=== PATIENT | male | born 1945 | race Caucasian/White ===

== ENCOUNTER 2018-05-19 08:47 | Inpatient (IN) | payer MEDICARE, OTHER ==
--- NOTE | 2018-05-19 09:12 | ED ---
General Adult HPI - General Chief complaint: Shortness of Breath Stated complaint: Sob/chest pain Source: patient, family Mode of arrival: wheelchair Limitations: no limitations - History of Present Illness Initial comments: Dictation was produced using [employer] dictation software. please excuse any grammatical, word or spelling errors. Chief Complaint: 72-year-old male past medical history of COPD on home oxygen presents with dyspnea since yesterday. History of Present Illness: Patient is 72-year-old male. He states that he's been dyspneic since yesterday. Patient was at a [employer] green party. He states that his shortness of breath has acutely worsened. Patient has any worsening symptoms with lying flat. Patient reports however no pitting edema to bilateral lower extremities. Patient did eat a lot of salty foods last night and a spaghetti. Patient hasn't been completes at this time. Disturbed heart attack several years ago. The ROS documented in this emergency department record has been reviewed and confirmed by me. Those systems with pertinent positive or negative responses have been documented in the HPI. All other systems are other negative and/or noncontributory. - Related Data Home Medications Medication Instructions Recorded Confirmed Losartan [Cozaar] 50 mg PO DAILY 04/13/14 05/19/18 Methocarbamol [Robaxin] 750 mg PO QID 04/13/14 05/19/18 Pravastatin Sodium [Pravachol] 20 mg PO DAILY 04/13/14 05/19/18 guaiFENesin [Mucinex] 600 mg PO BID 04/13/14 05/19/18 metFORMIN HCL [Glucophage] 1,000 mg PO BID 04/13/14 05/19/18 sitaGLIPtin PHOSPHATE [Januvia] 100 mg PO DAILY 04/13/14 05/19/18 traMADol HCl [Ultram] 100 mg PO BID PRN 04/13/14 05/19/18 Albuterol Nebulized [Ventolin 2.5 mg INHALATION RT-QID PRN 05/19/18 05/19/18 Nebulized] Dapagliflozin Propanediol [Farxiga] 5 mg PO DAILY 05/19/18 05/19/18 Fexofenadine HCl [Sepideh Allergy] 60 mg PO BID 05/19/18 05/19/18 Fluticasone/Umeclidin/Vilanter 1 puff INHALATION RT-DAILY 05/19/18 05/19/18 [Trelegy Ellipta 100-62.5-25] Gabapentin [Neurontin] 300 mg PO HS 05/19/18 05/19/18 HYDROcodone/APAP 5-325MG [[place] 1 tab PO DAILY PRN 05/19/18 05/19/18 5-325] Ipratropium/Albuterol Sulfate 2 puff INHALATION RT-Q6H PRN 05/19/18 05/19/18 [Combivent Respimat Inhaler] Allergies Allergy/AdvReac Type Severity Reaction Status Date / Time sildenafil [From Viagra] Allergy Anaphylaxis Verified 05/19/18 09:34 Review of Systems ROS Statement: Those systems with pertinent positive or pertinent negative responses have been documented in the HPI. ROS Other: All systems not noted in ROS Statement are negative. Past Medical History Past Medical History: COPD, Diabetes Mellitus, Sleep Apnea/CPAP/BIPAP History of Any Multi-Drug Resistant Organisms: None Reported Past Surgical History: No Surgical Hx Reported Past Psychological History: No Psychological Hx Reported Smoking Status: Former smoker Past Alcohol Use History: Rare Past Drug Use History: None Reported General Exam - General Exam Comments Initial Comments: PHYSICAL EXAM: General Impression: Alert and oriented x3, dyspneic HEENT: Normocephalic atraumatic, extra-ocular movements intact, pupils equal and reactive to light bilaterally, mucous membranes moist. Cardiovascular: Heart regular rate and rhythm, S1&S2 audible, no murmurs, rubs or gallops Chest: Bilateral lung crackles Abdomen: Bowel sounds present, abdomen soft, non-tender, non-distended, no organomegaly Musculoskeletal: Pulses present and equal in all extremities, 2+ pitting edema of bilateral pretibial areas Motor: Power 5/5 bilaterally, no focal deficits noted Neurological: CN II-XII grossly intact, no focal motor or sensory deficits noted Skin: Intact with no visualized rashes Psych: Normal affect and mood Limitations: no limitations Course Vital Signs 05/19/18 05/19/18 05/19/18 08:50 09:19 09:30 Temperature 98 F Pulse Rate 102 H 116 H Respiratory 26 H 26 H 32 H Rate Blood Pressure 117/66 121/91 O2 Sat by Pulse 86 L 91 L Oximetry 05/19/18 10:00 Temperature Pulse Rate 107 H Respiratory 25 H Rate Blood Pressure 129/75 O2 Sat by Pulse 97 Oximetry Medical Decision Making - Medical Decision Making ED course: 72-year-old male past medical history of COPD, oxygen dependent presents with new-onset dyspnea. All signs upon arrival shows oxygen saturation of 86, respiratory rate 26, heart rate of 102. Patient is in town visiting from [place]. His vacuum caster in all his establish care is in a different city.Laboratory evaluation obtained. Leukocytosis of 17.7. Rest of CBC unremarkable. Coag panel unremarkable. Metabolic panel shows potassium 5.5. Rest metabolic panel is grossly unremarkable. Cardiac enzymes negative. Prematurity peptide is slightly elevated at 1000. X-ray obtained showing chronic changes however there is infiltrate in the right lower lung. Clinical presentation suspicious for community acquired pneumonia. Patient given Centrax and azithromycin. Given comorbidities we will have patient admitted for IV antibiotics and further medical monitoring. EKG interpretation: Ventricular rate 114, sinus tachycardia, MO interval 144, care is 122, QTc 460. Right bundle branch pattern.. No MO prolongation, no QTC prolongation, no ST or T-wave changes noted. No old EKG for comparison. Overall, this EKG is unremarkable - Lab Data Result diagrams: 05/19/18 09:04 05/19/18 09:04 Lab Results 05/19/18 05/19/18 05/19/18 Range/Units 09:04 09:04 09:04 WBC 17.7 H (3.8-10.6) k/uL RBC 5.63 (4.30-5.90) m/uL Hgb 16.2 (13.0-17.5) gm/dL Hct 49.4 (39.0-53.0) % MCV 87.7 (80.0-100.0) fL MCH 28.7 (25.0-35.0) pg MCHC 32.7 (31.0-37.0) g/dL RDW 13.8 (11.5-15.5) % Plt Count 237 (150-450) k/uL Neutrophils % (Manual) 77 % Band Neutrophils % 11 % Lymphocytes % (Manual) 5 % Monocytes % (Manual) 8 % Neutrophils # (Manual) 15.50 H (1.3-7.7) k/uL Lymphocytes # (Manual) 0.89 L (1.0-4.8) k/uL Monocytes # (Manual) 1.42 H (0-1.0) k/uL Nucleated RBCs 0 (0-0) /100 WBC Manual Slide Review Performed PT (9.0-12.0) sec INR (<1.2) APTT (22.0-30.0) sec Sodium 142 (137-145) mmol/L Potassium 5.5 H (3.5-5.1) mmol/L Chloride 106 (98-107) mmol/L Carbon Dioxide 21 L (22-30) mmol/L Anion Gap 15 mmol/L BUN 19 (9-20) mg/dL Creatinine 0.80 (0.66-1.25) mg/dL Est GFR (CKD-EPI)AfAm >90 (>60 ml/min/1.73 sqM) Est GFR (CKD-EPI)NonAf >90 (>60 ml/min/1.73 sqM) Glucose 195 H (74-99) mg/dL Calcium 10.3 H (8.4-10.2) mg/dL Magnesium 2.0 (1.6-2.3) mg/dL Total Bilirubin 1.6 H (0.2-1.3) mg/dL AST 23 (17-59) U/L ALT 24 (21-72) U/L Alkaline Phosphatase 71 (38-126) U/L Total Creatine Kinase 22 L (55-170) U/L CK-MB (CK-2) 0.4 (0.0-2.4) ng/mL CK-MB (CK-2) Rel Index 1.8 Troponin I <0.012 (0.000-0.034) ng/mL NT-Pro-B Natriuret Pep pg/mL Total Protein 7.3 (6.3-8.2) g/dL Albumin 4.4 (3.5-5.0) g/dL 05/19/18 05/19/18 Range/Units 09:04 09:04 WBC (3.8-10.6) k/uL RBC (4.30-5.90) m/uL Hgb (13.0-17.5) gm/dL Hct (39.0-53.0) % MCV (80.0-100.0) fL MCH (25.0-35.0) pg MCHC (31.0-37.0) g/dL RDW (11.5-15.5) % Plt Count (150-450) k/uL Neutrophils % (Manual) % Band Neutrophils % % Lymphocytes % (Manual) % Monocytes % (Manual) % Neutrophils # (Manual) (1.3-7.7) k/uL Lymphocytes # (Manual) (1.0-4.8) k/uL Monocytes # (Manual) (0-1.0) k/uL Nucleated RBCs (0-0) /100 WBC Manual Slide Review PT 11.7 (9.0-12.0) sec INR 1.1 (<1.2) APTT 25.6 (22.0-30.0) sec Sodium (137-145) mmol/L Potassium (3.5-5.1) mmol/L Chloride (98-107) mmol/L Carbon Dioxide (22-30) mmol/L Anion Gap mmol/L BUN (9-20) mg/dL Creatinine (0.66-1.25) mg/dL Est GFR (CKD-EPI)AfAm (>60 ml/min/1.73 sqM) Est GFR (CKD-EPI)NonAf (>60 ml/min/1.73 sqM) Glucose (74-99) mg/dL Calcium (8.4-10.2) mg/dL Magnesium (1.6-2.3) mg/dL Total Bilirubin (0.2-1.3) mg/dL AST (17-59) U/L ALT (21-72) U/L Alkaline Phosphatase (38-126) U/L Total Creatine Kinase (55-170) U/L CK-MB (CK-2) (0.0-2.4) ng/mL CK-MB (CK-2) Rel Index Troponin I (0.000-0.034) ng/mL NT-Pro-B Natriuret Pep 1010 pg/mL Total Protein (6.3-8.2) g/dL Albumin (3.5-5.0) g/dL Disposition Clinical Impression: CAP (community acquired pneumonia) Disposition: ADMITTED IP TO THIS [facility] Condition: Fair Referrals: Nonstaff,Physician [Primary Care Provider] - 1-2 days Decision Time: 10:45
[2018-05-19 09:39] LABS: HCT 49.4 % (39.0-53.0); HGB 16.2 gm/dL (13.0-17.5); MCH 28.7 pg (25.0-35.0); MCHC 32.7 g/dL (31.0-37.0); MCV 87.7 fL (80.0-100.0); Mean Platelet Volume 6.8; Platelet Count 237 k/uL (150-450); RBC 5.63 m/uL (4.30-5.90); RDW 13.8 % (11.5-15.5); WBC 17.7 k/uL (3.8-10.6)
[2018-05-19 09:43] LABS: ALT 24 U/L (21-72); AST 23 U/L (17-59); Albumin 4.4 g/dL (3.5-5.0); Alkaline Phosphatase 71 U/L (38-126); Anion Gap 15 mmol/L; Blood Urea Nitrogen 19 mg/dL (9-20); Calcium 10.3 mg/dL (8.4-10.2); Carbon Dioxide 21 mmol/L (22-30); Chloride 106 mmol/L (98-107); Glucose 195 mg/dL (74-99); Potassium 5.5 mmol/L (3.5-5.1); Sodium 142 mmol/L (137-145); Total Bilirubin 1.6 mg/dL (0.2-1.3); Total Protein 7.3 g/dL (6.3-8.2)
[2018-05-19 09:45] LABS: INR 1.1 (<1.2); Partial Thromboplastin Time 25.6 sec (22.0-30.0); Prothrombin Time 11.7 sec (9.0-12.0)
[2018-05-19 09:57] LABS: Band Neutrophils % 11 %; Creatine Kinase 22 U/L (55-170); Lymphocytes # (M) 0.89 k/uL (1.0-4.8); Monocytes # (M) 1.42 k/uL (0-1.0); Neutrophils % (M) 77 %; Nucleated Red Blood Cells 0 /100 WBC (0-0); Total Cells Counted 200
--- NOTE | 2018-05-19 10:09 | XR ---
EXAMINATION TYPE: XR chest 2V DATE OF EXAM: 05/19/2018 COMPARISON: Chest x-ray April 13, 2014 HISTORY: History of COPD with shortness of breath. TECHNIQUE: Frontal and lateral views of the chest are obtained. FINDINGS: There is background chronic emphysematous change. There is right upper lung horizontal sca rring redemonstrated. Just below this there is 2.4 cm right lung nodule increased in size from prior. There is new right basilar opacity reticulonodular in appearance with prominent posterior aspect rig ht lower lobe on lateral view. Left lung shows some parenchymal scarring without suspicious new focal airspace opacity. No pleural effusion or pneumothorax is seen bilaterally. The cardiac silhouette si ze is within normal limits. The osseous structures are intact. IMPRESSION: Chronic emphysematous and parenchymal changes with new reticulonodular infiltrate and/or edema in the right lower lung most prominent posterior lower lobe. Correlate clinically for acute in fectious process. Enlarging right midlung nodule noted. Follow-up nonemergent chest CT advised to fur ther assess if patient has not had recent CT at outside institution.
[2018-05-19 10:10] LABS: Creatine Kinase MB 0.4 ng/mL (0.0-2.4); Troponin I <0.012 ng/mL (0.000-0.034)
[2018-05-19] MEDS ORDERED: AZITHROMYCIN 500 MG in SODIUM CHLORIDE 0.9% 250 ML IVPB STA (10:25)
[2018-05-19] MEDS ORDERED: traMADol 50 MG TAB PO STA (10:34)
[2018-05-19] MEDS ORDERED: ACETAMINOPHEN TAB 325 MG TAB PO PRN (10:45)
[2018-05-19] MEDS ORDERED: NALOXONE 0.4 MG/ML 1 ML VIAL IV PRN (10:45)
[2018-05-19 12:52] LABS: Glucose,Whole Blood 199 mg/dL (75-99)
[2018-05-19 13:06] VITALS: BMI 31.9
[2018-05-19] MEDS ORDERED: HYDROcodone/APAP 5-325MG 1 EACH TAB PO PRN (14:29)
[2018-05-19] MEDS: traMADol 50 MG TAB PO PRN ×2 (16:03→22:13)
[2018-05-19] MEDS: HEPARIN SODIUM,PORCINE 5,000 UNIT/ML 1 ML VIAL SQ SCH (16:05)
[2018-05-19] MEDS: IPRATROPIUM-ALBUTEROL 3 ML NEB INHALATION SCH ×2 (16:10→20:56)
[2018-05-19 16:40] LABS: Appearance,Urine Clear (Clear); Bilirubin,Urine Negative (Negative); Blood,Urine Negative (Negative); Color,Urine Yellow; Glucose,Urine (UA) 4+ (Negative); Leukocyte Esterase,Urine Negative (Negative); Nitrite,Urine Negative (Negative); Protein,Urine Negative (Negative); Specific Gravity,Urine 1.024 (1.001-1.035); Urobilinogen,Urine <2.0 mg/dL (<2.0)
[2018-05-19 17:13] LABS: Glucose,Whole Blood 158 mg/dL (75-99)
[2018-05-19 17:16] LABS: Ketones,Urine 4+ (Negative)
[2018-05-19] MEDS: INSULIN ASPART 100 UNIT/ML 1 ML 10 ML VIAL SQ SCH ×2 (17:20→20:53)
[2018-05-19 20:29] LABS: Hemoglobin A1C 6.8 % (4.0-6.0)
[2018-05-19 20:44] LABS: Glucose,Whole Blood 179 mg/dL (75-99)
[2018-05-19] MEDS: LORATADINE 10 MG TAB PO SCH (20:54)
[2018-05-19] MEDS: metFORMIN 500 MG TAB PO SCH (20:54)
[2018-05-19] MEDS: guaiFENesin 600 MG TABLET.ER PO SCH (20:54)
[2018-05-19] MEDS: GABAPENTIN 300 MG CAP PO SCH (20:54)
--- NOTE | 2018-05-19 22:26 | P.HPIM ---
History of Present Illness H&P Date: 05/19/18 Chief Complaint: Shortness of breath Mr. Preston is 72-year-old male with a known history of COPD on home oxygen, obstructive sleep apnea, history of lung nodule being followed by his director of physician practices and diabetes type 2 [id number] came to ER with the complaints of worsening shortness of breath since yesterday. Patient was at a [employer] party last night and suddenly developed shortness of breath. Patient became tachycardic and tachypneic and pulse ox was down to 88-90%. Patient does have history of COPD and wears oxygen with activity. Otherwise patient denied any history of stent placement but does have a history of ME.. Denied any worsening leg swelling. No fever no chills. Family brought him to the hospital for further evaluation. Chest x-ray showed chronic emphysematous and parenchymal changes with new reticular nodular infiltrate and/or edema in the right lower lung most prominent in the lower lobe,. Correlate clinically for acute infectious changes. Enlarging right lung nodule noted. EKG showed sinus tachycardia with PACs WBC 17.7 BNP 1010 Review of Systems Constitutional: Patient denies any fever or chills . No generalized weakness or weight loss. Abdomen: Patient denied nausea vomiting and diarrhea and abdominal pain. Cardiovascular: Patient denies any chest pain or short of breath no palpitations. No leg swelling Respiratory: Patient does have shortness of breath . Cough with greenish sputum. Neurologic: Patient denied any numbness or tingling headache. Musculoskeletal: Patient denies any complaints of joint swelling or deformity. Skin: Negative Psychiatric: Negative Endocrine: No heat or cold intolerance. No recent weight gain. Genitourinary: No dysuria or hematuria. All other 14 point ROS negative except the above Past Medical History Past Medical History: COPD, Diabetes Mellitus, Myocardial Infarction (ME), Sleep Apnea/CPAP/BIPAP Additional Past Medical History / Comment(s): ME 2006 Last Myocardial Infarction Date:: 2006 History of Any Multi-Drug Resistant Organisms: None Reported Past Surgical History: No Surgical Hx Reported Additional Past Surgical History / Comment(s): Carpal Tunnel left wrist, EGD, colonoscopy 2007 Past Anesthesia/Blood Transfusion Reactions: No Reported Reaction Past Psychological History: No Psychological Hx Reported Smoking Status: Former smoker Past Alcohol Use History: Rare Past Drug Use History: None Reported - Past Family History Father Family Medical History: Cancer Mother Additional Family Medical History / Comment(s): Alcoholism Medications and Allergies Home Medications Medication Instructions Recorded Confirmed Type Losartan [Cozaar] 50 mg PO DAILY 04/13/14 05/19/18 History Methocarbamol [Robaxin] 750 mg PO QID 04/13/14 05/19/18 History Pravastatin Sodium [Pravachol] 20 mg PO DAILY 04/13/14 05/19/18 History guaiFENesin [Mucinex] 600 mg PO BID 04/13/14 05/19/18 History metFORMIN HCL [Glucophage] 1,000 mg PO BID 04/13/14 05/19/18 History sitaGLIPtin PHOSPHATE [Januvia] 100 mg PO DAILY 04/13/14 05/19/18 History traMADol HCl [Ultram] 100 mg PO BID PRN 04/13/14 05/19/18 History Albuterol Nebulized [Ventolin 2.5 mg INHALATION RT-QID PRN 05/19/18 05/19/18 History Nebulized] Dapagliflozin Propanediol [Farxiga] 5 mg PO DAILY 05/19/18 05/19/18 History Fexofenadine HCl [Sepideh Allergy] 60 mg PO BID 05/19/18 05/19/18 History Fluticasone/Umeclidin/Vilanter 1 puff INHALATION RT-DAILY 05/19/18 05/19/18 History [Trelegy Ellipta 100-62.5-25] Gabapentin [Neurontin] 300 mg PO HS 05/19/18 05/19/18 History HYDROcodone/APAP 5-325MG [[place] 1 tab PO DAILY PRN 05/19/18 05/19/18 History 5-325] Ipratropium/Albuterol Sulfate 2 puff INHALATION RT-Q6H PRN 05/19/18 05/19/18 History [Combivent Respimat Inhaler] Allergies Allergy/AdvReac Type Severity Reaction Status Date / Time sildenafil [From Viagra] Allergy Anaphylaxis Verified 05/19/18 09:34 Physical Exam Vitals: Vital Signs Temp Pulse Resp BP Pulse Ox 05/19/18 11:30 112 H 25 H 141/78 91 L 05/19/18 11:00 108 H 27 H 144/88 93 L 05/19/18 10:30 112 H 27 H 124/77 94 L 05/19/18 10:00 107 H 25 H 129/75 97 05/19/18 09:30 116 H 32 H 121/91 91 L 05/19/18 09:19 26 H 05/19/18 08:50 98 F 102 H 26 H 117/66 86 L Intake and Output 05/18/18 05/19/18 05/19/18 22:59 06:59 14:59 Intake Total 650 Balance 650 Intake: Intake, IV Titration 250 Amount Azithromycin 500 mg In 250 Sodium Chloride 0.9% 250 ml @ 250 mls/hr IVPB ONCE STA Rx#:[id number] Oral 400 Other: Weight 95.254 kg PHYSICAL EXAMINATION: Patient is lying in the bed comfortably, mild distress, awake alert and oriented. Currently on BiPAP. HEENT: Normocephalic. Neck is supple. Pupils reactive. Nostrils clear. Oral cavity is moist. Ears reveal no drainage. Neck reveals no JVD, carotid bruits, or thyromegaly. CHEST EXAMINATION: Trachea is central. Symmetrical expansion. Bibasilar diminished air entry and right basilar crackles present. CARDIAC: Normal S1, S2 with no gallops. No murmurs ABDOMEN: Soft. Bowel sounds normal. No organomegaly. No abdominal bruits. Extremities: reveal no edema. No clubbing or cyanosis Neurologically awake, alert, oriented x3 with well-coordinated movements. No focal deficits noted Skin: No rash or skin lesions. Psychiatric: Coperative. Nonsuicidal Musculoskeletal: No joint swelling or deformity. Normal range of motion. Results CBC & Chem 7: 05/19/18 09:04 05/19/18 09:04 Labs: Abnormal Lab Results - Last 24 Hours (Table) 05/19/18 05/19/18 05/19/18 Range/Units 09:04 09:04 09:04 WBC 17.7 H (3.8-10.6) k/uL Neutrophils # (Manual) 15.50 H (1.3-7.7) k/uL Lymphocytes # (Manual) 0.89 L (1.0-4.8) k/uL Monocytes # (Manual) 1.42 H (0-1.0) k/uL Potassium 5.5 H (3.5-5.1) mmol/L Carbon Dioxide 21 L (22-30) mmol/L Glucose 195 H (74-99) mg/dL POC Glucose (mg/dL) (75-99) mg/dL Calcium 10.3 H (8.4-10.2) mg/dL Total Bilirubin 1.6 H (0.2-1.3) mg/dL Total Creatine Kinase 22 L (55-170) U/L 05/19/18 Range/Units 12:27 WBC (3.8-10.6) k/uL Neutrophils # (Manual) (1.3-7.7) k/uL Lymphocytes # (Manual) (1.0-4.8) k/uL Monocytes # (Manual) (0-1.0) k/uL Potassium (3.5-5.1) mmol/L Carbon Dioxide (22-30) mmol/L Glucose (74-99) mg/dL POC Glucose (mg/dL) 199 H (75-99) mg/dL Calcium (8.4-10.2) mg/dL Total Bilirubin (0.2-1.3) mg/dL Total Creatine Kinase (55-170) U/L Thrombosis Risk Factor Assmnt - DVT/VTE Prophylaxis DVT/VTE Prophylaxis: Pharmacologic Prophylaxis ordered - Choose All That Apply Any of the Below Risk Factors Present?: Yes Each Factor Represents 1 point: Abnormal pulmonary function (COPD), Obesity ( BMI >25), Swollen legs (current) Other Risk Factors: Yes Each Risk Factor Represents 2 Points: Age 61-74 years Thrombosis Risk Factor Assessment Total Risk Factor Score: 5 Thrombosis Risk Factor Assessment Level: High Risk Assessment and Plan Assessment: Shortness of breath secondary to right lower lobe reticulonodular infiltrate due to pneumonia COPD and chronic emphysematous changes on home oxygen History of right midlung nodule. On follow pulmonary clinic as an outpatient. Obstructive sleep apnea on CPAP at home Diabetes type 2 [id number] History of migraine Previous history of smoking DVT prophylaxis Plan: Patient will be continued on antibiotics no cough ceftriaxone and azithromycin. Continue with breathing treatments with duo nebs and Breo 1 puff daily. Continue with home diabetic medications and insulin sliding scale. Pulmonary is consulted for further evaluation. Continue with oxygen therapy and BiPAP as needed. Prognosis is guarded with multiple medical problems and comorbid conditions. Discussed with the family at bedside in detail. Time with Patient: Greater than 30
[2018-05-20] MEDS: IPRATROPIUM-ALBUTEROL 3 ML NEB INHALATION SCH ×7 (00:06→22:56)
[2018-05-20] MEDS: HEPARIN SODIUM,PORCINE 5,000 UNIT/ML 1 ML VIAL SQ SCH ×3 (00:36→17:24)
[2018-05-20 07:19] LABS: Basophils % (A) 0 %; Eosinophils % (A) 0 %; HGB 14.5 gm/dL (13.0-17.5); Lymphocytes # (A) 1.4 k/uL (1.0-4.8); Lymphocytes % (A) 11 %; MCH 29.6 pg (25.0-35.0); MCHC 33.7 g/dL (31.0-37.0); MCV 87.7 fL (80.0-100.0); Mean Platelet Volume 7.1; Monocytes # (A) 1.1 k/uL (0-1.0); Monocytes % (A) 9 %; Neutrophils % (A) 78 %; Platelet Count 197 k/uL (150-450); RBC 4.91 m/uL (4.30-5.90); RDW 13.7 % (11.5-15.5); WBC 12.9 k/uL (3.8-10.6)
[2018-05-20 07:27] LABS: Glucose,Whole Blood 149 mg/dL (75-99)
[2018-05-20 07:35] LABS: Anion Gap 10 mmol/L; Blood Urea Nitrogen 19 mg/dL (9-20); Calcium 9.3 mg/dL (8.4-10.2); Carbon Dioxide 23 mmol/L (22-30); Chloride 105 mmol/L (98-107); Glucose 156 mg/dL (74-99); Potassium 4.2 mmol/L (3.5-5.1); Sodium 138 mmol/L (137-145)
[2018-05-20] MEDS ORDERED: SYMBICORT 80-4.5 MCG INHALER INHALATION SCH (08:00)
[2018-05-20] MEDS: guaiFENesin 600 MG TABLET.ER PO SCH ×2 (08:33→22:28)
[2018-05-20] MEDS: AZITHROMYCIN 500 MG TAB PO SCH (08:33)
[2018-05-20] MEDS: LINAGLIPTIN 5 MG TABLET PO SCH (08:33)
[2018-05-20] MEDS: LOSARTAN 50 MG TAB PO SCH (08:33)
[2018-05-20] MEDS: metFORMIN 500 MG TAB PO SCH ×2 (08:33→22:29)
[2018-05-20] MEDS: LORATADINE 10 MG TAB PO SCH (08:33)
[2018-05-20] MEDS: PRAVASTATIN SODIUM 20 MG TAB PO SCH (08:33)
[2018-05-20] MEDS: INSULIN ASPART 100 UNIT/ML 1 ML 10 ML VIAL SQ SCH ×4 (08:34→22:28)
[2018-05-20] MEDS: NON-FORMULARY DRUG (Dapagliflozin Propanediol [Farxiga] 5 MG) PO SCH (08:38)
[2018-05-20 11:28] LABS: Glucose,Whole Blood 152 mg/dL (75-99)
[2018-05-20] MEDS: DILTIAZEM ORAL 30 MG TAB PO SCH ×3 (13:29→22:29)
--- NOTE | 2018-05-20 13:31 | CONS ---
CONSULTATION This is a pulmonary critical care consult. DATE OF SERVICE: 05/20/2018. A very pleasant 72-year-old gentleman who lives up in the [facility]. There he sees a family doctor and a adult education instructor by the name of Dr. José. He apparently has a history of end-stage COPD. He also has a history of sleep apnea syndrome. He uses CPAP at nighttime for sleep apnea and he is on oxygen 24/. The patient states that over the last couple days he has been getting more and more short of breath. He feels like he has got lots of chest congestion, wheezing and tightness in his chest. He is coughing and bringing up phlegm. He finally got so bad that they decided to bring him in. Even though he lives up in that area, he was down here visiting some friends. He was seen in the emergency room and diagnosed with a COPD exacerbation complicated by bronchopneumonia right lower lobe. In addition, he has a lesion in the right mid lung, which he states his doctors have been following for many years and that lesion has been stable. HOME MEDICATIONS: Include losartan, Robaxin, Pravachol, Mucinex, Glucophage, Januvia, Ultram, albuterol inhaler, Farxiga, Sepideh, Trelegy, Neurontin, and [place]. He apparently is also taking Combivent. ALLERGIES: Include VIAGRA OR SILDENAFIL. MEDICAL HISTORY: COPD, which is end-stage, diabetes, and sleep apnea syndrome for which he takes CPAP. He also has a history of hypertension, hyperlipidemia, environmental allergies and neuropathy. SURGICAL HISTORY: Remote. SOCIAL HISTORY: Positive for previous heavy tobacco use. Does not smoke currently. Rarely uses alcohol. No illicit drug use. Family and occupational history noncontributory. REVIEW OF SYSTEMS: CONSTITUTIONAL: Possible fever and chills. NEUROLOGIC negative. HEENT negative. CARDIOVASCULAR negative. PULMONARY: Shortness of breath, chest congestion, cough, wheezing, phlegm production. GI/ negative. RHEUMATOLOGIC/HEMATOLOGIC negative. ENDOCRINOLOGIC/DERMATOLOGIC: Negative. PHYSICAL EXAMINATION: Current vital signs are reviewed. Temperature 97.8, heart rate 76, respiratory rate 16, blood pressure 111/73, mean 85. 2 L saturation 91-93 percent. Appears in no acute distress. HEENT examination is grossly unremarkable. Mucous membranes are moist. Nasal O2 noted. NECK: Supple. Full range of motion. No adenopathy or thyromegaly. Neck veins are flat. Cardiovascular examination reveals regular rhythm and rate. Heart rate in the 70s. S1, S2 normal. There is no murmur. Pulmonary examination reveals coarse inspiratory and expiratory rhonchi and wheezes. Some crackles at both bases. More so on the right than on the left. There is prolongation on forced maneuver. Breath sounds are equal bilaterally but diminished throughout. ABDOMEN: Soft. Bowel sounds are heard. Extremities are intact. No cyanosis, clubbing, or edema. Skin without rash. Neurologic examination is brief but nonfocal. LABS: Reviewed. White count 12.9, hemoglobin 14.5, hematocrit 43, platelet count normal. Sodium, potassium, chloride, CO2, anion gap, BUN and creatinine all normal. Calcium normal. PT/INR normal. PTT normal. Urine is negative. A chest x-ray showed the infiltrate in the right lower lobe. ASSESSMENT: 1. Chronic obstructive pulmonary disease exacerbation complicated by right lower lobe pneumonia in a patient with end-stage oxygen-dependent chronic obstructive pulmonary disease. 2. History of sleep apnea syndrome, on nocturnal CPAP. 3. History of hypertension. 4. History of hyperlipidemia. 5. History of diabetes mellitus with diabetic neuropathy. 6. History of environmental allergies. PLAN: The patient's medications reviewed. We will assure that he is on appropriate medications including short-acting beta agonist, short-acting muscarinic antagonist and long-acting beta agonist and inhaled corticosteroid. We will also make sure he is on Solu-Medrol as well as appropriate antibiotics. Additional recommendations and suggestions are forthcoming. In a day or 2, we will repeat a chest x-ray. Additional recommendations and suggestions forthcoming. Labs, x-rays and medications are all reviewed. MMODL / IJN: [id number] /
[2018-05-20 17:05] LABS: Glucose,Whole Blood 190 mg/dL (75-99)
[2018-05-20] MEDS: methylPREDNISolone SOD SUCCI 40 MG/ML 1 ML VIAL IV SCH (17:23)
[2018-05-20] MEDS: BUDESONIDE 1 MG/2 ML NEBU INHALATION SCH (19:35)
[2018-05-20] MEDS: FORMOTEROL FUMARATE 20 MCG/2 ML NEBU INHALATION SCH (19:35)
[2018-05-20 20:22] LABS: Glucose,Whole Blood 208 mg/dL (75-99)
[2018-05-20] MEDS: GABAPENTIN 300 MG CAP PO SCH (22:28)
[2018-05-20] MEDS: traMADol 50 MG TAB PO PRN (22:29)
--- NOTE | 2018-05-20 23:15 | P.PN ---
Subjective Progress Note Date: 05/20/18 Principal diagnosis: Acute COPD exacerbation Pneumonia Mr. Preston is 72-year-old male with a known history of COPD on home oxygen, obstructive sleep apnea, history of lung nodule being followed by his senior database programmer and diabetes type 2 [id number] came to ER with the complaints of worsening shortness of breath since yesterday. Patient was at a green party last night and suddenly developed shortness of breath. Patient became tachycardic and tachypneic and pulse ox was down to 88-90%. Patient does have history of COPD and wears oxygen with activity. Otherwise patient denied any history of stent placement but does have a history of ND.. Denied any worsening leg swelling. No fever no chills. Family brought him to the hospital for further evaluation. Chest x-ray showed chronic emphysematous and parenchymal changes with new reticular nodular infiltrate and/or edema in the right lower lung most prominent in the lower lobe,. Correlate clinically for acute infectious changes. Enlarging right lung nodule noted. EKG showed sinus tachycardia with PACs WBC 17.7 BNP 1010 05/20/2018 Patient says that his breathing is getting better. Currently on BiPAP machine. Bilateral expiratory wheezing is present. Otherwise patient is being continued on breathing treatments and antibiotics. Leukocytosis is trending down. Patient was admitted with IV methylprednisolone. Pulmonary is on board. No fever no chills. No chest pain. No nausea vomiting or abdominal pain. Patient was found to have irregular rhythm in the telemetry monitoring. Cardiology was consulted. Current medications reviewed Active Medications Generic Name Dose Route Start Last Admin Trade Name Freq PRN Reason Stop Dose Admin Acetaminophen 650 mg 05/19/18 10:45 Tylenol Tab PO Q6HR PRN Mild Pain or Fever > 100.5 Hydrocodone Bitart/Acetaminophen 1 each 05/19/18 14:29 [place] 5-325 PO DAILY PRN MODERATE Pain Albuterol/Ipratropium 3 ml 05/19/18 16:00 05/20/18 22:56 Duoneb 0.5 Mg-3 Mg/3 Ml Soln INHALATION 3 ml RT-Q4H TIMBO Administration Azithromycin 500 mg 05/20/18 09:00 05/20/18 08:33 Zithromax PO 500 mg DAILY TIMBO Administration Budesonide 1 mg 05/20/18 20:00 05/20/18 19:35 Pulmicort INHALATION 1 mg RT-BID TIMBO Administration Diltiazem HCl 30 mg 05/20/18 13:00 05/20/18 22:29 Cardizem Oral PO 30 mg QID TIMBO Administration Formoterol Fumarate 20 mcg 05/20/18 20:00 05/20/18 19:35 Perforomist INHALATION 20 mcg RT-BID TIMBO Administration Gabapentin 300 mg 05/19/18 21:00 05/20/18 22:28 Neurontin PO 300 mg HS TIMBO Administration Guaifenesin 600 mg 05/19/18 21:00 05/20/18 22:28 Mucinex PO 600 mg BID TIMBO Administration Heparin Sodium (Porcine) 5,000 unit 05/19/18 16:00 05/20/18 17:24 Heparin SQ 5,000 unit Q8HR TIMBO Administration Ceftriaxone Sodium 1,000 mg/ 50 mls @ 100 mls/hr 05/20/18 09:00 05/20/18 08: 34 Sodium Chloride IVPB 100 mls/hr Q24HR TIMBO Administration Insulin Aspart 0 unit 05/19/18 17:30 05/20/18 22:28 Novolog SQ 3 unit ACHS TIMBO Administration Protocol Linagliptin 5 mg 05/20/18 09:00 05/20/18 08:33 Tradjenta PO 5 mg DAILY TIMBO Administration Loratadine 10 mg 05/19/18 21:00 05/20/18 08:33 Claritin PO 10 mg DAILY TIMBO Administration Losartan Potassium 50 mg 05/20/18 09:00 05/20/18 08:33 Cozaar PO 50 mg DAILY TIMBO Administration Metformin HCl 1,000 mg 05/19/18 21:00 05/20/18 22:29 Glucophage PO 1,000 mg BID TIMBO Administration Methylprednisolone Sodium Succinate 40 mg 05/20/18 18:00 05/20/18 17:23 Solu-Medrol IV 40 mg Q6HR TIMBO Administration Naloxone HCl 0.2 mg 05/19/18 10:45 Narcan IV Q2M PRN Opioid Reversal Non-Formulary Medication 5 mg 05/20/18 09:00 05/20/18 08:38 Dapagliflozin Propanediol [Farxiga] PO Not Given DAILY TIMBO Pravastatin Sodium 20 mg 05/20/18 09:00 05/20/18 08:33 Pravachol PO 20 mg DAILY TIMBO Administration Tramadol HCl 50 mg 05/19/18 10:45 05/20/18 22:29 Ultram PO 50 mg Q6H PRN Administration Moderate Pain Objective - Vital Signs Vital signs: Vital Signs Temp 97.8 F 05/20/18 08:44 Pulse 109 H 05/20/18 13:21 Resp 22 05/20/18 13:21 BP 111/73 05/20/18 08:44 Pulse Ox 91 L 05/20/18 08:44 Intake & Output 05/19/18 05/20/18 05/20/18 18:59 06:59 18:59 Intake Total 650 560 360 Balance 650 560 360 Weight 95.254 kg 95.254 kg Intake: Intake, IV Titration 250 Amount Azithromycin 500 mg In 250 Sodium Chloride 0.9% 250 ml @ 250 mls/hr IVPB ONCE STA Rx#:[id number] Oral 400 560 360 Other: # Voids 1 - Exam PHYSICAL EXAMINATION: Patient is lying in the bed comfortably, no acute distress, awake alert and oriented.. HEENT: Normocephalic. Neck is supple. Pupils reactive. Nostrils clear. Oral cavity is moist. Ears reveal no drainage. Neck reveals no JVD, carotid bruits, or thyromegaly. CHEST EXAMINATION: Trachea is central. Symmetrical expansion. Bilateral expiratory wheezing and diminished bibasilar air entry. Minimal rhonchi.. CARDIAC: Normal S1, S2 with no gallops. No murmurs ABDOMEN: Soft. Bowel sounds normal. No organomegaly. No abdominal bruits. Extremities: reveal no edema. No clubbing or cyanosis Neurologically awake, alert, oriented x3 with well-coordinated movements. No focal deficits noted Skin: No rash or skin lesions. Psychiatric: Coperative. Nonsuicidal Musculoskeletal: No joint swelling or deformity. Normal range of motion. - Labs CBC & Chem 7: 05/20/18 06:57 05/20/18 06:57 Labs: Abnormal Lab Results - Last 24 Hours (Table) 05/19/18 05/19/18 05/19/18 Range/Units 09:04 16:30 17:01 WBC (3.8-10.6) k/uL Neutrophils # (1.3-7.7) k/uL Monocytes # (0-1.0) k/uL Glucose (74-99) mg/dL POC Glucose (mg/dL) 158 H (75-99) mg/dL Hemoglobin A1c 6.8 H (4.0-6.0) % Urine Glucose (UA) 4+ H (Negative) Urine Ketones 4+ H (Negative) 05/19/18 05/20/18 05/20/18 Range/Units 20:33 06:57 06:57 WBC 12.9 H (3.8-10.6) k/uL Neutrophils # 10.0 H (1.3-7.7) k/uL Monocytes # 1.1 H (0-1.0) k/uL Glucose 156 H (74-99) mg/dL POC Glucose (mg/dL) 179 H (75-99) mg/dL Hemoglobin A1c (4.0-6.0) % Urine Glucose (UA) (Negative) Urine Ketones (Negative) 05/20/18 05/20/18 Range/Units 07:12 11:12 WBC (3.8-10.6) k/uL Neutrophils # (1.3-7.7) k/uL Monocytes # (0-1.0) k/uL Glucose (74-99) mg/dL POC Glucose (mg/dL) 149 H 152 H (75-99) mg/dL Hemoglobin A1c (4.0-6.0) % Urine Glucose (UA) (Negative) Urine Ketones (Negative) Microbiology - Last 24 Hours (Table) 05/19/18 16:30 Urine Culture - Preliminary Urine,Voided Assessment and Plan Assessment: Shortness of breath secondary to right lower lobe reticulonodular infiltrate due to pneumonia Acute COPD exacerbation chronic emphysematous changes on home oxygen History of right midlung nodule. On follow pulmonary clinic as an outpatient. Obstructive sleep apnea on CPAP at home Diabetes type 2 [id number] History of migraine Previous history of smoking DVT prophylaxis Plan: Patient will be continued on antibiotics no cough ceftriaxone and azithromycin. Continue with breathing treatments with duo nebs and Pulmicort and Perforomist and IV methylprednisolone. Continue with home diabetic medications and insulin sliding scale. Pulmonary is consulted for further evaluation. Continue with oxygen therapy and BiPAP as needed. Prognosis is guarded with multiple medical problems and comorbid conditions. Discussed with the family at bedside in detail. Time with Patient: Greater than 30
[2018-05-21] MEDS: methylPREDNISolone SOD SUCCI 40 MG/ML 1 ML VIAL IV SCH ×5 (01:09→23:52)
[2018-05-21] MEDS: HEPARIN SODIUM,PORCINE 5,000 UNIT/ML 1 ML VIAL SQ SCH ×4 (01:09→23:52)
[2018-05-21] MEDS: IPRATROPIUM-ALBUTEROL 3 ML NEB INHALATION SCH ×5 (03:28→19:55)
[2018-05-21] MEDS: NON-FORMULARY DRUG (Dapagliflozin Propanediol [Farxiga] 5 MG) PO SCH (08:09)
[2018-05-21 08:10] LABS: Glucose,Whole Blood 238 mg/dL (75-99)
[2018-05-21] MEDS: INSULIN ASPART 100 UNIT/ML 1 ML 10 ML VIAL SQ SCH ×4 (08:11→21:50)
[2018-05-21] MEDS: AZITHROMYCIN 500 MG TAB PO SCH (08:11)
[2018-05-21] MEDS: LORATADINE 10 MG TAB PO SCH (08:11)
[2018-05-21] MEDS: PRAVASTATIN SODIUM 20 MG TAB PO SCH (08:11)
[2018-05-21] MEDS: LOSARTAN 50 MG TAB PO SCH (08:11)
[2018-05-21] MEDS: guaiFENesin 600 MG TABLET.ER PO SCH ×2 (08:11→21:50)
[2018-05-21] MEDS: DILTIAZEM ORAL 30 MG TAB PO SCH ×4 (08:11→21:50)
[2018-05-21] MEDS: LINAGLIPTIN 5 MG TABLET PO SCH (08:11)
[2018-05-21] MEDS: metFORMIN 500 MG TAB PO SCH ×2 (08:11→21:50)
[2018-05-21] MEDS: BUDESONIDE 1 MG/2 ML NEBU INHALATION SCH ×2 (08:41→19:55)
[2018-05-21] MEDS: FORMOTEROL FUMARATE 20 MCG/2 ML NEBU INHALATION SCH ×2 (08:41→19:55)
[2018-05-21 12:03] LABS: Glucose,Whole Blood 186 mg/dL (75-99)
[2018-05-21] MEDS: traMADol 50 MG TAB PO PRN ×2 (12:17→21:50)
--- NOTE | 2018-05-21 13:24 | PN ---
PROGRESS NOTE DATE OF SERVICE: 05/21/2018 This is a 72-year-old gentleman who I saw yesterday in consultation. He lives up in the [facility]. There he sees a family doctor and a presser hand by the name of Dr. José. He apparently has a history of end-stage COPD. He also suffers from sleep apnea syndrome. He uses oxygen 24/7 and CPAP at nighttime. More recently, he was down here visiting some friends and became ill. He developed shortness of breath, chest congestion, coughing and wheezing. He got so bad that he was brought to the emergency room. He was diagnosed with a COPD exacerbation complicated by bronchopneumonia in the right lower lobe. Yesterday also, he was coughing up a small amount of bright red blood. Today, he is still coughing up blood, but it is darker. It is relatively scant in quantity. Anyway, the patient is doing better. Feeling better. I did order a chest x-ray for tomorrow morning. He is on all the usual medications that we use for this condition. Current vital signs are reviewed. Temperature 97.7 heart rate 80, respiratory rate 16, blood pressure 107/68, mean 81 and 4 L saturations about 93%. Appears mildly tachypneic and dyspneic but much improved from yesterday. No use of accessory muscles. No conversational dyspnea. No nasal flaring. HEENT examination is grossly unremarkable. Nasal O2 in place. Neck is supple. Full range of motion. No adenopathy or thyromegaly. Neck veins are flat. Cardiovascular examination reveals distant heart sounds. S1, S2 normal. Heart rate about 80. No murmur. Lungs reveal coarse inspiratory and expiratory rhonchi and wheezes. Breath sounds are diminished. There is prolongation on forced maneuver. Air exchange is improved compared to yesterday. Abdomen is soft. Bowel sounds are heard. Extremities are intact. No cyanosis, clubbing, or edema. Skin without rash. Neurologic examination is brief but nonfocal. LABS: Reviewed. There is nothing new to report from today. Chest x-ray was ordered for tomorrow morning. Sputum and urine sampling is negative thus far. MEDICATIONS: Reviewed. He is currently on Pulmicort and Perforomist twice a day, DuoNebs q.i.d. and p.r.n., Solu-Medrol 40 mg q.6 hours and Zithromax along with ceftriaxone at usual doses. ASSESSMENT: 1. Chronic obstructive pulmonary disease exacerbation in a patient with end- stage severe oxygen-dependent COPD complicated by right lower lobe pneumonia. 2. History of sleep apnea syndrome, on nocturnal CPAP. 3. History of hypertension. 4. History of hyperlipidemia. 5. Diabetes mellitus with diabetic neuropathy. 6. History of multiple environmental allergies. PLAN: The patient is doing well. We will continue to follow. The patient will be seen by my partner tomorrow. The patient knows to follow up with his presser hand when he gets back up into the [facility]. He also wanted to know about a presser hand in the [facility], so I gave him the name of a colleague of ours by the name of Lopez Michael. Additional recommendations and suggestions are forthcoming. Will await tomorrow morning's x-ray. MMODL / IJN: [id number] / MTDD
--- NOTE | 2018-05-21 16:33 | P.CRDCN ---
History of Present Illness History of present illness: This is Dr. Shields dictating a consult on this patient The patient was interviewed and examined by me IMPRESSION / ASSESSMENT: Shortness of breath related to his pulmonary problems. He is on home oxygen Bilateral lower extremity edema Sinus tachycardia, he was given diltiazem 30 mg 4 times a day. Hypertension on losartan Type 2 diabetes, dyslipidemia PLAN: Start Lasix 40 mg by mouth daily Low potassium diet 2-D echo and Doppler study May need to lower losartan if potassium remains elevated despite dietary changes or VELTASSA may be considered HPI Patient presented with increasing shortness of breath. He was against a cold draft and when he sat in the car but on the seatbelt he could hardly breathe. He had heavy carbohydrate meal. He got out of the car stood up and felt a little better and then came to the hospital. No chest discomfort no palpitations His twelve-lead ECG and rhythms were read as atrial fibrillation. I see no evidence for atrial fibrillation based on the telemetry strips in the ECG is present in the chart. He has sinus tachycardia with PACs ROS: No fever chills or rigors, no cough, phlegm or expectoration, no nausea, vomiting or diarrhea, no hematuria, dysuria, no musculoskeletal complaints, no strokes or seizures, no skin lesions. EXAMINATION Reduced breath sounds bilaterally bilateral rhonchorous breath sounds occasional bed zone crackles Heart sounds are soft no murmurs no gallops Abdomen is soft Extremities warm bilateral lower extremity edema No JVD Blood pressure 104/71 mmHg heart rate in the 80s and 90s REVIEW OF LABS, ECG ECG shows sinus tachycardia and does not show atrial fibrillation. He said to ECGs in the chart Labs reveal normal sodium normal potassium normal BUN and creatinine elevated glucose levels Potassium 5.5 troponin normal Past Medical History Past Medical History: COPD, Diabetes Mellitus, Myocardial Infarction (SC), Sleep Apnea/CPAP/BIPAP Additional Past Medical History / Comment(s): SC 2006 Last Myocardial Infarction Date:: 2006 History of Any Multi-Drug Resistant Organisms: None Reported Past Surgical History: No Surgical Hx Reported Additional Past Surgical History / Comment(s): Carpal Tunnel left wrist, EGD, colonoscopy 2007 Past Anesthesia/Blood Transfusion Reactions: No Reported Reaction Past Psychological History: No Psychological Hx Reported Smoking Status: Former smoker Past Alcohol Use History: Rare Past Drug Use History: None Reported - Past Family History Father Family Medical History: Cancer Mother Additional Family Medical History / Comment(s): Alcoholism Medications and Allergies Home Medications Medication Instructions Recorded Confirmed Type Losartan [Cozaar] 50 mg PO DAILY 04/13/14 05/19/18 History Methocarbamol [Robaxin] 750 mg PO QID 04/13/14 05/19/18 History Pravastatin Sodium [Pravachol] 20 mg PO DAILY 04/13/14 05/19/18 History guaiFENesin [Mucinex] 600 mg PO BID 04/13/14 05/19/18 History metFORMIN HCL [Glucophage] 1,000 mg PO BID 04/13/14 05/19/18 History sitaGLIPtin PHOSPHATE [Januvia] 100 mg PO DAILY 04/13/14 05/19/18 History traMADol HCl [Ultram] 100 mg PO BID PRN 04/13/14 05/19/18 History Albuterol Nebulized [Ventolin 2.5 mg INHALATION RT-QID PRN 05/19/18 05/19/18 History Nebulized] Dapagliflozin Propanediol [Farxiga] 5 mg PO DAILY 05/19/18 05/19/18 History Fexofenadine HCl [Sepideh Allergy] 60 mg PO BID 05/19/18 05/19/18 History Fluticasone/Umeclidin/Vilanter 1 puff INHALATION RT-DAILY 05/19/18 05/19/18 History [Trelegy Ellipta 100-62.5-25] Gabapentin [Neurontin] 300 mg PO HS 05/19/18 05/19/18 History HYDROcodone/APAP 5-325MG [[place] 1 tab PO DAILY PRN 05/19/18 05/19/18 History 5-325] Ipratropium/Albuterol Sulfate 2 puff INHALATION RT-Q6H PRN 05/19/18 05/19/18 History [Combivent Respimat Inhaler] Allergies Allergy/AdvReac Type Severity Reaction Status Date / Time sildenafil [From Viagra] Allergy Anaphylaxis Verified 05/19/18 09:34 Physical Exam Vitals: Vital Signs Temp Pulse Pulse Resp BP Pulse Ox 05/21/18 16:29 98 05/21/18 15:00 97.6 F 89 15 104/71 93 L 05/21/18 12:29 88 05/21/18 12:18 84 05/21/18 09:05 100 05/21/18 08:57 100 05/21/18 08:41 100 05/21/18 08:02 97.7 F 80 16 107/68 93 L 05/21/18 01:00 97.8 F 97 16 99/59 94 L 05/20/18 23:07 90 05/20/18 22:57 90 05/20/18 19:55 93 05/20/18 19:47 92 05/20/18 19:46 92 05/20/18 19:37 91 89 L 05/20/18 18:17 97.9 F 104 H 18 90/52 92 L Intake and Output 05/21/18 05/21/18 05/21/18 06:59 14:59 22:59 Intake Total 560 Balance 560 Intake: Oral 360 Other 200 Other: # Voids 1 3 Results 05/20/18 06:57 05/20/18 06:57 Current Medications Generic Name Dose Route Start Last Admin Trade Name Freq PRN Reason Stop Dose Admin Acetaminophen 650 mg 05/19/18 10:45 Tylenol Tab PO Q6HR PRN Mild Pain or Fever > 100.5 Hydrocodone Bitart/Acetaminophen 1 each 05/19/18 14:29 [place] 5-325 PO DAILY PRN MODERATE Pain Albuterol/Ipratropium 3 ml 05/19/18 16:00 05/21/18 16:28 Duoneb 0.5 Mg-3 Mg/3 Ml Soln INHALATION 3 ml RT-Q4H TIMBO Administration Azithromycin 500 mg 05/20/18 09:00 05/21/18 08:11 Zithromax PO 500 mg DAILY TIMBO Administration Budesonide 1 mg 05/20/18 20:00 05/21/18 08:41 Pulmicort INHALATION 1 mg RT-BID TIMBO Administration Diltiazem HCl 30 mg 05/20/18 13:00 05/21/18 12:17 Cardizem Oral PO 30 mg QID TIMBO Administration Formoterol Fumarate 20 mcg 05/20/18 20:00 05/21/18 08:41 Perforomist INHALATION 20 mcg RT-BID TIMBO Administration Gabapentin 300 mg 05/19/18 21:00 05/20/18 22:28 Neurontin PO 300 mg HS TIMBO Administration Guaifenesin 600 mg 05/19/18 21:00 05/21/18 08:11 Mucinex PO 600 mg BID TIMBO Administration Heparin Sodium (Porcine) 5,000 unit 05/19/18 16:00 05/21/18 08:11 Heparin SQ 5,000 unit Q8HR TIMBO Administration Ceftriaxone Sodium 1,000 mg/ 50 mls @ 100 mls/hr 05/20/18 09:00 05/21/18 08: 10 Sodium Chloride IVPB 100 mls/hr Q24HR TIMBO Administration Insulin Aspart 0 unit 05/19/18 17:30 05/21/18 12:52 Novolog SQ 2 unit ACHS TIMBO Administration Protocol Linagliptin 5 mg 05/20/18 09:00 05/21/18 08:11 Tradjenta PO 5 mg DAILY TIMBO Administration Loratadine 10 mg 05/19/18 21:00 05/21/18 08:11 Claritin PO 10 mg DAILY TIMBO Administration Losartan Potassium 50 mg 05/20/18 09:00 05/21/18 08:11 Cozaar PO 50 mg DAILY TIMBO Administration Metformin HCl 1,000 mg 05/19/18 21:00 05/21/18 08:11 Glucophage PO 1,000 mg BID TIMBO Administration Methylprednisolone Sodium Succinate 40 mg 05/20/18 18:00 05/21/18 12:18 Solu-Medrol IV 40 mg Q6HR TIMBO Administration Naloxone HCl 0.2 mg 05/19/18 10:45 Narcan IV Q2M PRN Opioid Reversal Non-Formulary Medication 5 mg 05/20/18 09:00 05/21/18 08:09 Dapagliflozin Propanediol [Farxiga] PO Not Given DAILY [facility] Pravastatin Sodium 20 mg 05/20/18 09:00 05/21/18 08:11 Pravachol PO 20 mg DAILY TIMBO Administration Tramadol HCl 50 mg 05/19/18 10:45 05/21/18 12:17 Ultram PO 50 mg Q6H PRN Administration Moderate Pain Intake and Output 05/21/18 05/21/18 05/21/18 06:59 14:59 22:59 Intake Total 560 Balance 560 Intake: Oral 360 Other 200 Other: # Voids 1 3 05/20/18 06:57 05/20/18 06:57
[2018-05-21 17:10] LABS: Glucose,Whole Blood 253 mg/dL (75-99)
[2018-05-21 20:34] LABS: Glucose,Whole Blood 262 mg/dL (75-99)
[2018-05-21] MEDS: GABAPENTIN 300 MG CAP PO SCH (21:50)
--- NOTE | 2018-05-21 23:35 | P.PN ---
Subjective Progress Note Date: 05/21/18 Principal diagnosis: Acute COPD exacerbation Pneumonia Mr. 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 Patient was at a green party last night and suddenly developed shortness of breath. Patient became tachycardic and tachypneic and pulse ox was down to 88-90%. Patient does have history of COPD and wears oxygen with activity. Otherwise patient denied any history of stent placement but does have a history of MA.. Denied any worsening leg swelling. No fever no chills. Family brought him to the hospital for further evaluation. Chest x-ray showed chronic emphysematous and parenchymal changes with new reticular nodular infiltrate and/or edema in the right lower lung most prominent in the lower lobe,. Correlate clinically for acute infectious changes. Enlarging right lung nodule noted. EKG showed sinus tachycardia with PACs WBC 17.7 BNP 1010 05/20/2018 Patient says that his breathing is getting better. Currently on BiPAP machine. Bilateral expiratory wheezing is present. Otherwise patient is being continued on breathing treatments and antibiotics. Leukocytosis is trending down. Patient was admitted with IV methylprednisolone. Pulmonary is on board. No fever no chills. No chest pain. No nausea vomiting or abdominal pain. Patient was found to have irregular rhythm in the telemetry monitoring. Cardiology was consulted. 05/21/2018 Patient is currently saturating well on nasal cannula oxygen. Breathing is much improved. Patient is still tachycardic likely due to breathing treatments with albuterol. EKG showed sinus tachycardia as per cardiology. Unlikely atrial fibrillation. Patient is being continued on IV steroids and breathing treatments and antibiotics. Overall improving clinically. All other review of systems negative except the above Current medications reviewed Active Medications Acetaminophen (Tylenol Tab) 650 mg PO Q6HR PRN PRN Reason: Mild Pain or Fever > 100.5 Hydrocodone Bitart/Acetaminophen ([place] 5-325) 1 each PO DAILY PRN PRN Reason: MODERATE Pain Albuterol/Ipratropium (Duoneb 0.5 Mg-3 Mg/3 Ml Soln) 3 ml INHALATION RT-Q4H [facility] Last Admin: 05/21/18 19:55 Dose: 3 ml Azithromycin (Zithromax) 500 mg PO DAILY [facility] Last Admin: 05/21/18 08:11 Dose: 500 mg Budesonide (Pulmicort) 1 mg INHALATION RT-BID [facility] Last Admin: 05/21/18 19:55 Dose: 1 mg Diltiazem HCl (Cardizem Oral) 30 mg PO QID [facility] Last Admin: 05/21/18 21:50 Dose: 30 mg Formoterol Fumarate (Perforomist) 20 mcg INHALATION RT-BID [facility] Last Admin: 05/21/18 19:55 Dose: 20 mcg Gabapentin (Neurontin) 300 mg PO HS [facility] Last Admin: 05/21/18 21:50 Dose: 300 mg Guaifenesin (Mucinex) 600 mg PO BID [facility] Last Admin: 05/21/18 21:50 Dose: 600 mg Heparin Sodium (Porcine) (Heparin) 5,000 unit SQ Q8HR [facility] Last Admin: 05/21/18 18:07 Dose: 5,000 unit Ceftriaxone Sodium 1,000 mg/ (Sodium Chloride) 50 mls @ 100 mls/hr IVPB Q24HR [facility] Last Admin: 05/21/18 08:10 Dose: 100 mls/hr Insulin Aspart (Novolog) 0 unit SQ ACHS [facility]; Protocol Last Admin: 05/21/18 21:50 Dose: 4 unit Linagliptin (Tradjenta) 5 mg PO DAILY [facility] Last Admin: 05/21/18 08:11 Dose: 5 mg Loratadine (Claritin) 10 mg PO DAILY [facility] Last Admin: 05/21/18 08:11 Dose: 10 mg Losartan Potassium (Cozaar) 50 mg PO DAILY [facility] Last Admin: 05/21/18 08:11 Dose: 50 mg Metformin HCl (Glucophage) 1,000 mg PO BID [facility] Last Admin: 05/21/18 21:50 Dose: 1,000 mg Methylprednisolone Sodium Succinate (Solu-Medrol) 40 mg IV Q6HR [facility] Last Admin: 05/21/18 18:07 Dose: 40 mg Naloxone HCl (Narcan) 0.2 mg IV Q2M PRN PRN Reason: Opioid Reversal Non-Formulary Medication (Dapagliflozin Propanediol [Farxiga]) 5 mg PO DAILY [facility] Last Admin: 05/21/18 08:09 Dose: Not Given Pravastatin Sodium (Pravachol) 20 mg PO DAILY [facility] Last Admin: 05/21/18 08:11 Dose: 20 mg Tramadol HCl (Ultram) 50 mg PO Q6H PRN PRN Reason: Moderate Pain Last Admin: 05/21/18 21:50 Dose: 50 mg Objective - Vital Signs Vital signs: Vital Signs Temp 97.3 F L 05/21/18 20:30 Pulse 102 H 05/21/18 20:30 Resp 18 05/21/18 20:30 BP 116/50 05/21/18 20:30 Pulse Ox 90 L 05/21/18 20:30 Intake & Output 05/21/18 05/21/18 05/22/18 06:59 18:59 06:59 Intake Total 560 Balance 560 Intake: Oral 360 Other 200 Other: # Voids 1 3 - Exam PHYSICAL EXAMINATION: Patient is lying in the bed comfortably, no acute distress, awake alert and oriented.. HEENT: Normocephalic. Neck is supple. Pupils reactive. Nostrils clear. Oral cavity is moist. Ears reveal no drainage. Neck reveals no JVD, carotid bruits, or thyromegaly. CHEST EXAMINATION: Trachea is central. Symmetrical expansion. Prolonged expiration. Bilateral air entry is much improved. Right basilar minimal crackles.. CARDIAC: Normal S1, S2 with no gallops. No murmurs ABDOMEN: Soft. Bowel sounds normal. No organomegaly. No abdominal bruits. Extremities: reveal no edema. No clubbing or cyanosis Neurologically awake, alert, oriented x3 with well-coordinated movements. No focal deficits noted Skin: No rash or skin lesions. Psychiatric: Coperative. Nonsuicidal Musculoskeletal: No joint swelling or deformity. Normal range of motion. - Labs CBC & Chem 7: 05/20/18 06:57 05/20/18 06:57 Labs: Abnormal Lab Results - Last 24 Hours (Table) 05/21/18 05/21/18 05/21/18 Range/Units 07:59 11:50 16:45 POC Glucose (mg/dL) 238 H 186 H 253 H (75-99) mg/dL 05/21/18 Range/Units 20:21 POC Glucose (mg/dL) 262 H (75-99) mg/dL Microbiology - Last 24 Hours (Table) 05/19/18 16:30 Urine Culture - Final Urine,Voided 05/20/18 16:21 Gram Stain - Preliminary Sputum Sputum Culture - Preliminary Assessment and Plan Assessment: Shortness of breath secondary to right lower lobe reticulonodular infiltrate with pneumonia and COPD Acute COPD exacerbation Sinus tachycardia likely due to albuterol inhalation treatments chronic emphysematous changes on home oxygen History of right midlung nodule. On follow pulmonary clinic as an outpatient. Obstructive sleep apnea on CPAP at home Diabetes type 2 [id number] History of migraine Previous history of smoking DVT prophylaxis Plan: Patient will be continued on antibiotics no cough ceftriaxone and azithromycin. Continue with breathing treatments with duo nebs and Pulmicort and Perforomist and IV methylprednisolone. Continue with home diabetic medications and insulin sliding scale. Pulmonary is following. Continue with oxygen therapy and BiPAP as needed. Prognosis is guarded with multiple medical problems and comorbid conditions. Discussed with the family at bedside in detail. Time with Patient: Greater than 30
[2018-05-22] MEDS: IPRATROPIUM-ALBUTEROL 3 ML NEB INHALATION SCH ×6 (01:52→19:31)
[2018-05-22] MEDS: methylPREDNISolone SOD SUCCI 40 MG/ML 1 ML VIAL IV SCH ×2 (05:18→12:35)
[2018-05-22] MEDS: FORMOTEROL FUMARATE 20 MCG/2 ML NEBU INHALATION SCH ×2 (06:52→19:31)
[2018-05-22] MEDS: BUDESONIDE 1 MG/2 ML NEBU INHALATION SCH ×2 (06:52→19:31)
[2018-05-22 07:08] LABS: Glucose,Whole Blood 196 mg/dL (75-99)
[2018-05-22 07:12] LABS: Basophils % (A) 0 %; Eosinophils % (A) 0 %; HCT 45.8 % (39.0-53.0); HGB 15.3 gm/dL (13.0-17.5); Lymphocytes # (A) 1.1 k/uL (1.0-4.8); Lymphocytes % (A) 10 %; MCH 29.1 pg (25.0-35.0); MCHC 33.4 g/dL (31.0-37.0); MCV 87.2 fL (80.0-100.0); Mean Platelet Volume 7.1; Monocytes # (A) 0.4 k/uL (0-1.0); Monocytes % (A) 3 %; Neutrophils # (A) 10.1 k/uL (1.3-7.7); Neutrophils % (A) 86 %; Platelet Count 248 k/uL (150-450); RBC 5.25 m/uL (4.30-5.90); RDW 13.5 % (11.5-15.5); WBC 11.7 k/uL (3.8-10.6)
--- NOTE | 2018-05-22 07:28 | XR ---
EXAMINATION TYPE: XR chest 2V DATE OF EXAM: 05/22/2018 COMPARISON: 05/19/2018 HISTORY: Pneumonia. Shortness of breath. Follow up exam. TECHNIQUE: Frontal and lateral views of the chest are obtained. FINDINGS: Pulmonary hyperinflation is compatible with underlying COPD. Reticular linear opacity in t he right upper lung contiguous with the thickened right upper lung lateral pleural surface is favored to represent fibrosis although should be evaluated further with CT. Again there is an approximately 2.4 cm right midlung pulmonary nodule that remain suspicious. Underlying moderate to severe emphysema tous changes are seen as tapering of the pulmonary vasculature, biapical lucency, and pulmonary hyper inflation. Cardiomediastinal silhouette is elongated and there is engorgement of the pulmonary arteri es compatible with underlying pulmonary arterial hypertension. There is improvement of the right basi lar reticular opacity in comparison to the prior. IMPRESSION: 1. Improving right basilar reticular opacity that may relate to resolving pneumonia or atelectasis. 2. Redemonstration of a suspicious 2.4 cm right mid lung pulmonary nodule for which further evaluatio n with CT thorax is recommended. 3. Right upper lung probable scarring that can also be evaluated with CT superimposed upon COPD and f indings suggesting pulmonary arterial hypertension.
[2018-05-22 07:31] LABS: Anion Gap 10 mmol/L; Blood Urea Nitrogen 29 mg/dL (9-20); Carbon Dioxide 24 mmol/L (22-30); Chloride 105 mmol/L (98-107); Glucose 195 mg/dL (74-99); Potassium 4.8 mmol/L (3.5-5.1); Sodium 139 mmol/L (137-145)
[2018-05-22] MEDS: INSULIN ASPART 100 UNIT/ML 1 ML 10 ML VIAL SQ SCH ×2 (07:44→12:31)
[2018-05-22] MEDS: traMADol 50 MG TAB PO PRN (07:48)
[2018-05-22 08:07] VITALS: RESP 14
[2018-05-22] MEDS: NON-FORMULARY DRUG (Dapagliflozin Propanediol [Farxiga] 5 MG) PO SCH (09:19)
[2018-05-22] MEDS: HEPARIN SODIUM,PORCINE 5,000 UNIT/ML 1 ML VIAL SQ SCH ×2 (09:19→15:30)
[2018-05-22] MEDS: PRAVASTATIN SODIUM 20 MG TAB PO SCH (09:24)
[2018-05-22] MEDS: guaiFENesin 600 MG TABLET.ER PO SCH (09:24)
[2018-05-22] MEDS: AZITHROMYCIN 500 MG TAB PO SCH (09:24)
[2018-05-22] MEDS: DILTIAZEM ORAL 30 MG TAB PO SCH ×2 (09:24→13:28)
[2018-05-22] MEDS: metFORMIN 500 MG TAB PO SCH (09:24)
[2018-05-22] MEDS: LORATADINE 10 MG TAB PO SCH (09:24)
[2018-05-22] MEDS: LOSARTAN 50 MG TAB PO SCH (09:24)
[2018-05-22] MEDS: LINAGLIPTIN 5 MG TABLET PO SCH (09:24)
--- NOTE | 2018-05-22 11:53 | P.PN ---
Subjective Progress Note Date: 05/22/18 Principal diagnosis: Acute exacerbation of chronic obstructive pulmonary disease, right lower lobe pneumonia This is a 72-year-old white male patient that lives in the [facility], who is in this area visiting, was admitted to the hospital on 05/19/2018 for acute exacerbation of chronic obstructive pulmonary disease, and was also found to have right lower lobe pneumonia. Patient has been treated with the antibiotics , nebulized bronchodilators, IV Solu-Medrol, he is improving, breathing easier, he has been up ambulating in the room, tolerating fairly well. Has not ambulated in the hallway yet. Today's chest x-ray shows improvement in the appearance of the right lower lobe infiltrate. Sputum culture showed rare gram- positive bacilli, final culture is pending. Patient does wear home O2 at 2-3 L per nasal cannula, current antibiotic coverage includes Rocephin and Zithromax, patient has been afebrile, lung sounds reveal some rales at the bases, worse on the right base. No distress, no chest pain. No worsening dyspnea. No accessory muscle use. Patient's lab work was reviewed today, showed a wVC of 11.7, hemoglobin of 15.3, electrolytes were within normal limits, B1 was 29 and creatinine was 0.7. Overall he is improving, she would like to go home today. Objective - Vital Signs Vital signs: Vital Signs Temp 98.0 F 05/22/18 06:45 Pulse 86 05/22/18 11:21 Resp 14 05/22/18 06:45 BP 122/76 05/22/18 06:45 Pulse Ox 92 L 05/22/18 06:45 Intake & Output 05/21/18 05/22/18 05/22/18 18:59 06:59 18:59 Intake Total 560 Balance 560 Intake: Oral 360 Other 200 Other: # Voids 3 1 - Exam GENERAL EXAM: Alert, pleasant, 72-year-old white male comfortable in no apparent distress. HEAD: Normocephalic/atraumatic. EYES: Normal reaction of pupils, equal size. Conjunctiva pink, sclera white. NOSE: Clear with pink turbinates. THROAT: No erythema or exudates. NECK: No masses, no JVD, no thyroid enlargement, no adenopathy. CHEST: No chest wall deformity. Symmetrical expansion. LUNGS: Equal air entry with coarse crackles at the right lower base, no wheezing CVS: Regular rate and rhythm, normal S1 and S2, no gallops, no murmurs, no rubs ABDOMEN: Soft, nontender. No hepatosplenomegaly, normal bowel sounds, no guarding or rigidity. EXTREMITIES: No clubbing, no edema, no cyanosis, 2+ pulses and upper and lower extremities. MUSCULOSKELETAL: Muscle strength and tone normal. SPINE: No scoliosis or deformity SKIN: No rashes CENTRAL NERVOUS SYSTEM: Alert and oriented -3. No focal deficits, tone is normal in all 4 extremities. PSYCHIATRIC: Alert and oriented -3. Appropriate affect. Intact judgment and insight. - Labs CBC & Chem 7: 05/22/18 06:45 05/22/18 06:45 Labs: Abnormal Lab Results - Last 24 Hours (Table) 05/21/18 05/21/18 05/21/18 Range/Units 11:50 16:45 20:21 WBC (3.8-10.6) k/uL Neutrophils # (1.3-7.7) k/uL BUN (9-20) mg/dL Glucose (74-99) mg/dL POC Glucose (mg/dL) 186 H 253 H 262 H (75-99) mg/dL 05/22/18 05/22/18 05/22/18 Range/Units 06:45 06:45 06:56 WBC 11.7 H (3.8-10.6) k/uL Neutrophils # 10.1 H (1.3-7.7) k/uL BUN 29 H (9-20) mg/dL Glucose 195 H (74-99) mg/dL POC Glucose (mg/dL) 196 H (75-99) mg/dL Microbiology - Last 24 Hours (Table) 05/20/18 16:21 Gram Stain - Preliminary Sputum Sputum Culture - Preliminary Gram Neg Bacilli Assessment and Plan Plan: Assessments: #1. Acute exacerbation of chronic obstructive pulmonary disease #2. Right lower lobe pneumonia, community-acquired #3. End-stage severe oxygen-dependent COPD #4. History of sleep apnea on CPAP therapy #5. Hypertension, hyperlipidemia #6. Diabetes mellitus with diabetic neuropathy #7. Multiple environmental ALLERGIES Plan: Patient is doing well, continues to improve, breathing easier, no fever or chills, tolerating ambulation. Today's chest x-ray has been reviewed by Dr. Hightower and shows improvement in the appearance of the right lower lobe pneumonia. From pulmonary perspective patient is stable for discharge home today on a course of oral antibiotics, prednisone taper, and his maintenance inhalers and nebulized treatments. Patient can follow up with his mobile engineer in the [place] area by the end of the week or early next week. I performed a history & physical examination of the patient and discussed their management with my nurse practitioner, Ladonna Alcantara. I reviewed the nurse practitioner's note and agree with the documented findings and plan of care. Lung sounds are positive for right lower base crackles. The findings and the impression was discussed with the patient. I attest to the documentation by the nurse practitioner. Time with Patient: Less than 30
[2018-05-22 12:27] LABS: Glucose,Whole Blood 178 mg/dL (75-99)
--- NOTE | 2018-05-22 15:46 | ECHOF ---
Referral Reason:sob, LE edema MEASUREMENTS -------- HEIGHT: 172.7 cm WEIGHT: 95.3 kg BP: 109/65 IVSd: 1.2 cm (0.6 - 1.1) LVIDd: 4.2 cm (3.9 - 5.3) LVPWd: 1.3 cm (0.6 - 1.1) IVSs: 1.6 cm LVIDs: 2.9 cm LVPWs: 1.6 cm LA Diam: 3.6 cm (2.7 - 3.8) RVIDd: 3.9 cm (< 3.3) Ao Diam: 3.4 cm (2.0 - 3.7) AV Cusp: 2.3 cm (1.5 - 2.6) EPSS: 1.0 cm MV E Chaz: 0.79 m/s MV DecT: 242 ms MV A Chaz: 0.89 m/s MV E/A Ratio: 0.89 RAP: 15.00 mmHg RVSP: 61.65 mmHg MV EF SLOPE: 48.90 mm/s (70 - 150) MV EXCURSION: 13.28 mm (> 18.000) FINDINGS -------- Sinus rhythm with extra systolic beats. This was a technically adequate study. The left ventricular size is normal. There is mild concentric left ventricular hypertrophy. Overa ll left ventricular systolic function is normal with, an EF between 55 - 60 %. The right ventricle is moderately enlarged. The left atrial size is normal. The right atrium is normal in size. There is mild aortic valve sclerosis. The mitral valve is normal. [id number] tricuspid regurgitation present. There is severe pulmonary hypertension. The rig ht ventricular systolic pressure, as measured by Doppler, is 61.65mmHg. There is no pulmonic regurgitation present. The aortic root size is normal. The inferior vena cava is dilated with poor inspiratory collapse which is consistent with estimated r ight atrial pressure of 15 mmHg. There is no pericardial effusion. CONCLUSIONS -------- 1. Sinus rhythm with extra systolic beats. 2. This was a technically adequate study. 3. The left ventricular size is normal. 4. There is mild concentric left ventricular hypertrophy. 5. Overall left ventricular systolic function is normal with, an EF between 55 - 60 %. 6. The right ventricle is moderately enlarged. 7. The left atrial size is normal. 8. The right atrium is normal in size. 9. There is mild aortic valve sclerosis. 10. The mitral valve is normal. 11. Aeqo-hc-pnpraztz tricuspid regurgitation present. 12. There is severe pulmonary hypertension. 13. The right ventricular systolic pressure, as measured by Doppler, is 61.65mmHg. 14. There is no pulmonic regurgitation present. 15. The aortic root size is normal. 16. The inferior vena cava is dilated with poor inspiratory collapse which is consistent with estimat ed right atrial pressure of 15 mmHg. 17. There is no pericardial effusion. EDITOR PUBLICATIONS: Kimberly Valle RDCS
[2018-05-22 15:50] VITALS: BP 138/75; TEMP 97.5
[2018-05-22 15:52] VITALS: PULSE 90
[2018-05-22] MEDS ORDERED: predniSONE 20 MG TAB PO STA (15:53)
[2018-05-23] MEDS: IPRATROPIUM-ALBUTEROL 3 ML NEB INHALATION SCH (00:56)
--- NOTE | 2018-05-25 07:14 | CDI ---
Documentation Clarification Form Date: 05/25/18 From: Lima Luis Tejal Prasad, Guard Driver Hours-8:30 am & 5 pm M-F Admit Date: 05/19/2018 10:45:00 AM Patient Name: Nils Preston Visit Number: [id number] Discharge Date: 05/22/2018 5:11:00 PM ATTENTION: The Clinical Documentation Specialists (CDI) and [facility] Coding Staff appreciate your assistance in clarifying documentation. Please respond to the clarification below the line at the bottom and electronically sign. The CDI & [facility] Coding staff will review the response and follow-up if needed. Please note: Queries are made part of the Legal Health Record. If you have any questions, please contact the author of this message via ITS. Dr. Edith Jacobs Pneumonia was documented in your H&P, progress notes on 05/20-05/22. History/Risk Factors: emphysema/COPD, ac on chr hypoxic respiratory failure, Diabetic neuropathy Vital signs: T-98, P-102, R-26, BP-117/66, O2 sat-86 on NC 4L WBC/Left shift: 17.7/15.5 Gram stain: Pseudomonas aeruginosa CXR:Chronic emphysematous and parenchymal changes with new reticulonodular infiltrate and/or edema in the RLL most prominent PLL. Lung/Breathing assessment: Bibasilar diminished air entry and right basilar crackles present. Treatment: Duo nebs and Breo and CPAP & O2 Antibiotics: IV Ceftriaxone & Azithromycin In order to capture the severity of condition, please clarify if the condition signifies and you are treating for: Bacterial Pneumonia, specify causal organism (if known) Gram Negative Pneumonia Due to Pseudomonas aeruginosa Other bacteria (please specify) Other, please specify Unable to determine Bacterial pneumonia possible community acquired MTDD
--- NOTE | 2018-05-29 22:03 | P.DS ---
Providers Date of admission: 05/19/18 10:45 Expected date of discharge: 05/22/18 Attending physician: Edith Jacobs Consults: 05/19/18 15:30 Consult Physician Routine Consulting Provider: Salomón Benton Consult Reason/Comments: COPD, pneumonia Do you want consulting provider notified?: Yes 05/20/18 12:49 Consult Physician Routine Consulting Provider: Jose Ray Consult Reason/Comments: A fib Do you want consulting provider notified?: Already Contacted Primary care physician: Physician Nonstaff Hospital Course: Discharge diagnosis Shortness of breath secondary to right lower lobe reticulonodular infiltrate with pneumonia and COPD Acute COPD exacerbation Sinus tachycardia likely due to albuterol inhalation treatments chronic emphysematous changes on home oxygen History of right midlung nodule. On follow pulmonary clinic as an outpatient. Obstructive sleep apnea on CPAP at home Diabetes type 2 [id number] History of migraine Previous history of smoking DVT prophylaxis Hospital course Mr. 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 Patient was at a alliance party last night and suddenly developed shortness of breath. Patient became tachycardic and tachypneic and pulse ox was down to 88-90%. Patient does have history of COPD and wears oxygen with activity. Otherwise patient denied any history of stent placement but does have a history of CT.. Denied any worsening leg swelling. No fever no chills. Family brought him to the hospital for further evaluation. Chest x-ray showed chronic emphysematous and parenchymal changes with new reticular nodular infiltrate and/or edema in the right lower lung most prominent in the lower lobe,. Correlate clinically for acute infectious changes. Enlarging right lung nodule noted. EKG showed sinus tachycardia with PACs WBC 17.7 BNP 1010 05/20/2018 Patient says that his breathing is getting better. Currently on BiPAP machine. Bilateral expiratory wheezing is present. Otherwise patient is being continued on breathing treatments and antibiotics. Leukocytosis is trending down. Patient was admitted with IV methylprednisolone. Pulmonary is on board. No fever no chills. No chest pain. No nausea vomiting or abdominal pain. Patient was found to have irregular rhythm in the telemetry monitoring. Cardiology was consulted. 05/21/2018 Patient is currently saturating well on nasal cannula oxygen. Breathing is much improved. Patient is still tachycardic likely due to breathing treatments with albuterol. EKG showed sinus tachycardia as per cardiology. Unlikely atrial fibrillation. Patient is being continued on IV steroids and breathing treatments and antibiotics. Overall improving clinically. 05/22/2018 Patient's breathing status is much improved now. Antibiotics will be continued and steroids changed to by mouth. Patient was recommended to follow up with pulmonary clinic as an outpatient. Clinically back to baseline. Stable to be discharged home. Discussed with family in detail. Plan: Patient was continued on antibiotics no cough ceftriaxone and azithromycin. Continued with breathing treatments with duo nebs and Pulmicort and Perforomist and IV methylprednisolone. Continued with home diabetic medications and insulin sliding scale. Pulmonary has seen the patient.. Continue with oxygen therapy and BiPAP as needed. Currently saturating well on nasal cannula. PHYSICAL EXAMINATION: Patient is lying in the bed comfortably, no acute distress, awake alert and oriented.. HEENT: Normocephalic. Neck is supple. Pupils reactive. Nostrils clear. Oral cavity is moist. Ears reveal no drainage. Neck reveals no JVD, carotid bruits, or thyromegaly. CHEST EXAMINATION: Trachea is central. Symmetrical expansion. Bilateral slow air entry. Lung rocha clear to auscultation and percussion. CARDIAC: Normal S1, S2 with no gallops. No murmurs ABDOMEN: Soft. Bowel sounds normal. No organomegaly. No abdominal bruits. Extremities: reveal no edema. No clubbing or cyanosis Neurologically awake, alert, oriented x3 with well-coordinated movements. No focal deficits noted Skin: No rash or skin lesions. Psychiatric: Coperative. Nonsuicidal Musculoskeletal: No joint swelling or deformity. Normal range of motion. Discharge vitals reviewed. Total time taken greater than 35 minutes including 18 minutes for counseling and coordination of care. Patient Condition at Discharge: Fair Plan - Discharge Summary New Discharge Prescriptions: New Levofloxacin [Levaquin] 500 mg PO DAILY 7 Days #7 tab predniSONE See Taper PO DAILY #30 tab Continue traMADol HCl [Ultram] 100 mg PO BID PRN PRN Reason: Pain sitaGLIPtin PHOSPHATE [Januvia] 100 mg PO DAILY metFORMIN HCL [Glucophage] 1,000 mg PO BID guaiFENesin [Mucinex] 600 mg PO BID Pravastatin Sodium [Pravachol] 20 mg PO DAILY Methocarbamol [Robaxin] 750 mg PO QID Losartan [Cozaar] 50 mg PO DAILY Fexofenadine HCl [Sepideh Allergy] 60 mg PO BID Albuterol Nebulized [Ventolin Nebulized] 2.5 mg INHALATION RT-QID PRN PRN Reason: Shortness Of Breath HYDROcodone/APAP 5-325MG [Mesa 5-325] 1 tab PO DAILY PRN PRN Reason: Pain Dapagliflozin Propanediol [Farxiga] 5 mg PO DAILY Ipratropium/Albuterol Sulfate [Combivent Respimat Inhaler] 2 puff INHALATION RT-Q6H PRN PRN Reason: Shortness Of Breath Fluticasone/Umeclidin/Vilanter [Trelegy Ellipta 100-62.5-25] 1 puff INHALATION RT-DAILY Gabapentin [Neurontin] 300 mg PO HS Discharge Medication List Losartan [Cozaar] 50 mg PO DAILY 04/13/14 [History] Methocarbamol [Robaxin] 750 mg PO QID 04/13/14 [History] Pravastatin Sodium [Pravachol] 20 mg PO DAILY 04/13/14 [History] guaiFENesin [Mucinex] 600 mg PO BID 04/13/14 [History] metFORMIN HCL [Glucophage] 1,000 mg PO BID 04/13/14 [History] sitaGLIPtin PHOSPHATE [Januvia] 100 mg PO DAILY 04/13/14 [History] traMADol HCl [Ultram] 100 mg PO BID PRN 04/13/14 [History] Albuterol Nebulized [Ventolin Nebulized] 2.5 mg INHALATION RT-QID PRN 05/19/18 [ History] Dapagliflozin Propanediol [Farxiga] 5 mg PO DAILY 05/19/18 [History] Fexofenadine HCl [Sepideh Allergy] 60 mg PO BID 05/19/18 [History] Fluticasone/Umeclidin/Vilanter [Trelegy Ellipta 100-62.5-25] 1 puff INHALATION RT-DAILY 05/19/18 [History] Gabapentin [Neurontin] 300 mg PO HS 05/19/18 [History] HYDROcodone/APAP 5-325MG [Mesa 5-325] 1 tab PO DAILY PRN 05/19/18 [History] Ipratropium/Albuterol Sulfate [Combivent Respimat Inhaler] 2 puff INHALATION RT- Q6H PRN 05/19/18 [History] Levofloxacin [Levaquin] 500 mg PO DAILY 7 Days #7 tab 05/22/18 [Rx] predniSONE See Taper PO DAILY #30 tab 05/22/18 [Rx] Follow up Appointment(s)/Referral(s): Nonstaff,Physician [Primary Care Provider] - 1-2 days Patient Instructions/Handouts: Prednisone (By mouth), Levofloxacin (By mouth), Community Acquired Pneumonia (DC) Discharge Disposition: HOME SELF-CARE
== END 2018-05-22 17:11 | disposition home or self-care (01) | DRG 193 ==
LOC: EC 08:47 → 3NMEDONC 10:45 → 4SSUR 11:40
PROVIDERS: ADMIT Internal Medicine; ATTEND Internal Medicine
PROC: 5A09457 Assistance with Respiratory Ventilation, 24-96 Consecutive Hours, Continuous Positive Airway Pressure (ICD-10-PCS; principal; 2018-05-19)
DX: J15.9 Unspecified bacterial pneumonia (principal); J96.21 Acute and chronic respiratory failure with hypoxia; R04.2 Hemoptysis; E11.40 Type 2 diabetes mellitus with diabetic neuropathy, unspecified; E87.5 Hyperkalemia; J43.9 Emphysema, unspecified; E66.9 Obesity, unspecified; Z68.31 Body mass index [BMI] 31.0-31.9, adult; E78.5 Hyperlipidemia, unspecified; G47.33 Obstructive sleep apnea (adult) (pediatric); I10 Essential (primary) hypertension; R00.0 Tachycardia, unspecified; T48.6X5A Adverse effect of antiasthmatics, initial encounter; R91.1 Solitary pulmonary nodule; I25.2 Old myocardial infarction; G43.909 Migraine, unspecified, not intractable, without status migrainosus; Z99.81 Dependence on supplemental oxygen; Z71.3 Dietary counseling and surveillance; Z79.84 Long term (current) use of oral hypoglycemic drugs; Z79.51 Long term (current) use of inhaled steroids; Z79.899 Other long term (current) drug therapy; Z99.89 Dependence on other enabling machines and devices; Z87.891 Personal history of nicotine dependence; Z88.8 Allergy status to other drugs, medicaments and biological substances; Z80.9 Family history of malignant neoplasm, unspecified; Z81.1 Family history of alcohol abuse and dependence
CPT/HCPCS: 36415; 71046; 80048; 80053; 81003; 82550; 82553; 83036; 83735; 83880; 84484; 85025; 85610; 85730; 87070; 87077; 87086; 87186; 87205; 93005; 93306; 94640; 94760; 96365; 96367; 99285